=== PATIENT | female | born 1955 | race American Indian/Alaskan Native ===

== ENCOUNTER 2018-06-07 06:30 | Day surgery (SDC) | payer OTHER ==
--- NOTE | 2018-06-07 09:16 | CP.SDSHP ---
Same Day Surgery H & P - History Proposed Procedure: Right knee arthroscopy Pre-Op Diagnosis: Right knee lateral/medial meniscal tears - Previous Medical/Surgical History Cardiac: Hypertension, Other (hypercholesterolemia) Pain: 4.Moderate Pain Previous Surgical History: Cataracts, Left breast lumpectomy - Allergies Allergies: NKDA - Current Medications Current Medications: simvastatin, losartan - Physical Exam General Appearance: NAD Mental Status: Alert & Oriented x3 Neuro: WNL Heart: WNL Lungs: WNL GI: WNL - {Optional Preform as Required} Abdomen: WNL Integument: WNL Ortho: Other (Right knee: mild swelling/effusion, medial and lateral joint line tenderness, Gross NVI distally, comps soft NT) ENT: WNL - Impression Impression: Patient is a 62 y/o female who presents for elective right knee arthroscopy after failing conservative management. Patient injured/twisted knee in hotel while climbing stairs in January 2018. Pros/cons/risks/benefits of procedure were explained to patient in detail. The patient expresses understanding and agrees to proceed with proposed procedure. Pt. Evaluated Today:Candidate for Anesthesia & Procedure: Yes - Date & Time Date: 06/07/18 Time: 09:14 Short Stay Discharge - Short Stay Discharge Admitting Diagnosis/Reason for Visit: PAIN IN RIGHT KNEE Disposition: HOME/ ROUTINE
[2018-06-07] MEDS ORDERED: Lidocaine 2% MPF (5 ml) Inj ONE (09:45)
[2018-06-07] MEDS ORDERED: Morphine 1 mg/ml preservative-free Inj(Duramorph) ONE (09:45)
[2018-06-07] MEDS ORDERED: MethylPREDNISolone Depo 40 mg/ml Inj ONE (09:45)
[2018-06-07] MEDS ORDERED: ceFAZolin IV 2 gm in Dextrose 2 GM/50 ML BAG IVPB ONE (09:46)
[2018-06-07] MEDS ORDERED: Bacitracin Ointment 30 GM TUBE ONE (09:46)
[2018-06-07] MEDS ORDERED: EPINEPHrine 1:1000 Nasal Sol(30mL) ONE (09:46)
[2018-06-07] MEDS ORDERED: Lidocaine Hydrochloride 20 ML INJ ONE (10:29)
[2018-06-07] MEDS ORDERED: Succinylcholine Chloride 20 mg/ml Syr (5 ml) IV ONE (10:59)
[2018-06-07] MEDS ORDERED: Rocuronium 10 mg/ml (10 ml) ONE ×2 (10:59→11:37)
[2018-06-07] MEDS ORDERED: Midazolam 2 MG/2 ML VIAL ONE (11:00)
[2018-06-07] MEDS ORDERED: Propofol 10 mg/ml Inj (20 ML) ONE ×2 (11:01→12:26)
[2018-06-07] MEDS ORDERED: ePHEDrine 50 mg/ml Inj ONE (11:19)
[2018-06-07] MEDS ORDERED: Neostigmine Methylsulfate 3mg/3ml Syringe IV ONE (11:57)
[2018-06-07] MEDS ORDERED: Bupivacaine 0.25% 20 ML INJ IJ ONE (12:06)
[2018-06-07] MEDS ORDERED: Oxycodone/Acetaminophen 5/325 mg Tab PO PRN (12:29)
[2018-06-07] MEDS ORDERED: Lactated Ringer's 1,000 ML IV ONE (12:29)
[2018-06-07] MEDS ORDERED: HYDROmorphone 0.5 mg/0.5 ml ISec IVP PRN (12:38)
--- NOTE | 2018-06-07 13:10 | PCM.SURG1 ---
Surgeon's Initial Post Op Note - Surgeon's Notes Surgeon: Paloma Lay Out Drafter: Adrianna watts CRNFA Type of Anesthesia: General Endo Anesthesia Administered By: DR Frazier Pre-Operative Diagnosis: post traumatic derangement Right knee Operative Findings: chondral frcature medial femoral condyle/femoral trochlea. tricompartmental synovitis. loose bodies. tear medial meniscus/tear lateral meniscus Post-Operative Diagnosis: post traumatic chondral fracture femoral trochlea/ medial femoral condyle. losse bodies( post traumatic). tricompartmental synvoitis. tear medial meniscus/tear lateral meniscus Operation Performed: arthroscopic microfracture medial femoral condyle/fwemoral trochlea. arthroscopic excison/removal loose bodies Right knee. arthroscopic partial tricompartmental synovectomy. arthroscopic partial medial/ partial lateral meniscectomy. intraraticular injection. applx Souleymane Calderon compression dressing and knee immobilizer Specimen/Specimens Removed: losse bodies/synovium/cartilage/bone Estimated Blood Loss: EBL {In ML}: 5 Blood Products Given: N/A Drains Used: No Drains Post-Op Condition: Fair Date of Surgery/Procedure: 06/07/18 Time of Surgery/Procedure: 11:45 (time in room/anaesthesia indcution time 11 AM)
[2018-06-07 17:57] VITALS: BP 110/64; PULSE 70; RESP 20; TEMP 98; O2SAT 100
--- NOTE | 2018-06-09 00:27 | OP ---
PROCEDURE DATE: 06/07/2018 PREOPERATIVE DIAGNOSIS: Posttraumatic derangement of the right knee. POSTOPERATIVE DIAGNOSES: 1. Posttraumatic chondral fracture of femoral trochlea and medial femoral condyle. 2. Loose bodies, posttraumatic. 3. Tricompartmental synovitis. 4. Loose bodies, right knee. 5. Tear of medial meniscus and tear of lateral meniscus. OPERATIONS PERFORMED: 1. Arthroscopic microfracture of medial femoral condyle and femoral trochlea. 2. Arthroscopic excision of loose bodies. 3. Arthroscopic partial tricompartmental synovectomy. 4. Arthroscopic partial medial and lateral meniscectomy. 5. Intraarticular injection. 6. Application of Souleymane Calderon compression dressing and knee immobilizer. SPECIMENS REMOVED: Loose bodies, synovium, cartilage, and bone. BLOOD LOSS: 5 mL. BLOOD PRODUCTS: No blood products given. DRAINS: No drains. POSTOPERATIVE CONDITION: Stable. SURGEON: Daniel Dow MD PRODUCTION CONTROL CLERK: Adrianna Vang, certified registered nursing compliance assistant. TYPE OF ANESTHESIA: General endotracheal anesthesia. ANESTHESIA ADMINISTERED BY: Dr. Frazier. OPERATIVE INDICATIONS: Courtney Manuel is a 62-year-old woman who sustained a fall at a hotel injuring her right knee. The patient presented and has been treated for the last several months since the injury conservatively with antiinflammatory medication, activity modification, and therapy. MRI examination was accomplished. Pros, cons, risks, and benefits of the surgical approach were discussed. Alternative procedures including benign neglect and intraarticular injection therapy were accomplished. The patient could not longer withstand the discomfort. The concept that the patient, in all medical probability, will require a secondary procedure as a direct and causal result of this injury was discussed. Right knee is the correct knee. DESCRIPTION OF PROCEDURE: After the satisfactory induction of general endotracheal anesthesia by Dr. Frazier and after having identified the side, site, and procedure in a critical pause/timeout for the right knee, after having obtained informed consent in the above fashion, the above-captioned individual, Courtney Manuel, in the supine position with all bony prominences well padded, the right lower extremity was prepped and free draped in the usual fashion for lower extremity surgery. The tourniquet have been applied, but it was not inflated. The knee powers was employed as well. After the satisfactory induction of general endotracheal anesthesia and again after having identified the side, site, and procedure in a critical pause/timeout of the right knee, after having obtained informed consent in the above fashion, again with the possibility of mechanical failure, infection, thromboembolic disease, secondary or tertiary surgery was discussed, the likelihood that a total knee replacement arthroplasty in the future will be necessary, was discussed. After having obtained informed consent and after having identified the side, site, and procedure in a critical pause/time-out, the right knee was insufflated with 10 mL of 1% lidocaine without epinephrine. An anterolateral portal was accomplished one thumbs breadth lateral to the inferior pole of the patella using a #11 blade, followed by spreading, followed by introduction of a blunt trocar. Triangulation was accomplished using a #18 gauge spinal needle, followed by #11 blade, followed by spreading. With the arthroscope anterolaterally, a careful and partial tricompartmental synovectomy was accomplished, both to improve visualization and to ablate irritative tissue. This having been accomplished with the arthroscope anterolaterally, examination of the joint commenced as there was found to be a tricompartmental synovitis. There was found to be evidence of multiple loose bodies. With the arthroscope transferred anteromedially with the surgeon exerting a gentle valgus stress, a careful partial tricompartmental synovectomy was accomplished both to improve visualization and to ablate irritative tissue. Visualization having been improved, hemostasis was controlled with the arthroscopic wand. There was found to be evidence of a large chondral defect in the medial femoral condyle, and the femoral trochlea was compromised, medial compartment as well as patellofemoral compartment. There was tear of the inner free edge of the medial meniscus, and there was a complex tear of the lateral meniscus. There was evidence of loose bodies and notch osteophytes. The anterior cruciate ligament was found to be intact with the knee with the surgeon exerting a gentle valgus stress with the arthroscope anterolaterally. A careful partial medial meniscectomy was accomplished using a combination of straight-biting basket forceps and the side-biting basket forceps. At this point in time, using the grasper, two loose bodies were removed. Please refer to the video and photographs. The arthroscope was then transferred anteromedially and the partial medial meniscectomy was completed using a combination of the straight-biting basket forceps, 3.4 mm mPorticos suction punch, arthroscopic shaver, and arthroscopic wand. This having been accomplished, attention was now turned anterolaterally. Further synovectomy was accomplished to improve visualization. Hemostasis controlled with the arthroscopic wand. With the arthroscope anterolaterally with the knee in [id number] position, there was found to be a complex tear of the lateral meniscus. Again, using a combination of the straight-biting basket forceps and the side-biting basket forceps, a partial lateral meniscectomy was accomplished. This having been accomplished, the inner free edge was smoothed using an ArthroCare wand. The arthroscope was transferred anteromedially and with the knee in [id number] position, the deep posterior horn was accessed as well using the straight-biting basket forceps. Using a combination of straight-biting basket forceps and the 3.4 mm Dyonics suction punch, a partial lateral meniscectomy was accomplished. The inner free edge was smoothed using the ArthroCare wand. Partial medial and lateral meniscectomy was completed using the ArthroCare wand. The intercondylar notch was found to be intact. There was found to be an osteophyte at the superior margin of the intercondylar notch. Using a [id number] osteotome, the osteophyte was removed, essentially turned into a loose body, and the loose body was removed with a loose body grasper. At this point in time, having identified the chondral defects, the chondral defect in the medial femoral condyle with the arthroscope anteromedially was identified with the knee in the appropriate amount of flexion to offer exposure. Using the arthroscopic pick, a microfracture technique was accomplished in a honeycomb type fashion. Great care was taken to remove bony fragments. The defect was down in the subchondral plate, certainly exacerbated, if not caused by the fall that this patient had sustained. With the arthroscope anteromedially, the medial femoral condyle was carefully debrided using a 3.4 mm Dyonics suction punch, and the arthroscopic shaver. With the arthroscope anteromedially, there was found to be evidence of a defect in the femoral trochlea. With the arthroscope anteromedially, using arthroscopic pick, the trochlea was developed in a honeycomb type fashion using the arthroscopic pick. This was carried down to bleeding bone, and thus a microfracture technique was accomplished as well. Microfracture having been accomplished in the patellofemoral joint and in the medial femoral condyle, careful partial tricompartmental synovectomy completed. Partial medial and lateral meniscectomy completed. Loose bodies having been removed, the wound was thoroughly irrigated. Closure of the arthroscopic portals in layers with interrupted Vicryl and nylon. Intraarticular injection of Marcaine, Duramorph, and Depo-Medrol was accomplished. Souleymane Calderon compression dressing and knee immobilizer were applied. Unfortunately, this constellation of injuries is as a direct and causal result of the slip and fall injury that this patient had sustained at the [facility]. Daniel Dow MD
== END 2018-06-07 17:40 | disposition home or self-care (01) ==
LOC: C.SDS 06:30
PROVIDERS: ATTEND Orthopaedic Surgery
DX: S72.431A Displaced fracture of medial condyle of right femur, initial encounter for closed fracture (principal); S72.101A Unspecified trochanteric fracture of right femur, initial encounter for closed fracture; M25.661 Stiffness of right knee, not elsewhere classified; S83.281A Other tear of lateral meniscus, current injury, right knee, initial encounter; S83.241A Other tear of medial meniscus, current injury, right knee, initial encounter; M23.41 Loose body in knee, right knee; M65.9 Synovitis and tenosynovitis, unspecified
CPT/HCPCS: 29876; 29879; 29880; 88305; 97116; 97161; G8978; G8979; G8980; J0690; J1030; J1170; J2001; J2250; J2270; J2704; J2710; J3010